=== PATIENT | male | born 1980 | race Caucasian/White ===

== ENCOUNTER 2025-01-25 15:50 | Emergency (ER) | payer MEDICAID ==
[~2025-01-25] VITALS: Ht 170.2 cm; Wt 100.6 kg
[~2025-01-25 15:50] MED LIST: CHLO25CA10 PO; NO HOME MEDS
[2025-01-25 15:55] VITALS: BP 137/83; PULSE 120; RESP 16; TEMP 99.2; O2SAT 95
== END 2025-01-25 20:12 | disposition left against medical advice (07) ==
LOC: ER 15:51
DX: R60.0 Localized edema (principal); Z88.5 Allergy status to narcotic agent; Z88.1 Allergy status to other antibiotic agents; Z53.21 Procedure and treatment not carried out due to patient leaving prior to being seen by health care provider

== ENCOUNTER 2025-01-27 18:00 | Emergency (ER) | payer MEDICAID ==
[~2025-01-27] VITALS: Ht 172.7 cm; Wt 88.9 kg
[2025-01-27] MEDS: normal saline 1000ML IV soln IVB ONE (18:30)
[2025-01-27 18:54] LABS: BASOPHILS # (AUTO) 0.1 X10'3 (0-0.2); BASOPHILS % (AUTO) 1.3 % (0-1); EOSINOPHILS # (AUTO) 0.1 X10'3 (0-0.9); EOSINOPHILS % (AUTO) 1.1 % (0-6); HEMATOCRIT 41.6 % (42.0-52.0); HEMOGLOBIN 14.3 g/dl (14.0-17.9); LYMPHOCYTES # (AUTO) 2.7 X10'3 (1.1-4.8); LYMPHOCYTES % (AUTO) 40.9 % (21-51); MEAN CORPUSCULAR HEMOGLOBIN 33.1 PG (27.0-31.0); MEAN CORPUSCULAR HGB CONC 34.3 g/dL (33.0-36.5); MEAN CORPUSCULAR VOLUME 96.4 FL (78-98); MEAN PLATELET VOLUME 7.2 FL (7.4-10.4); MONOCYTES # (AUTO) 0.5 X10'3 (0-0.9); MONOCYTES % (AUTO) 8.1 % (2-12); NEUTROPHILS # (AUTO) 3.2 X10'3 (1.8-7.7); NEUTROPHILS % (AUTO) 48.6 % (42-75); PLATELET COUNT 362 X10'3 (140-440); RED BLOOD COUNT 4.32 X10'6 (4.70-6.10); RED CELL DISTRIBUTION WIDTH 13.2 % (11.5-14.5); WHITE BLOOD COUNT 6.7 X10'3 (4.5-11.0)
[2025-01-27 19:04] LABS: APTT 32 SECONDS (22-32); INR 1.1 INR
[2025-01-27] MEDS: pantoprazole 40 MG vial IV STA (19:05)
[2025-01-27] MEDS: ondansetron/PF 4mg/2ml inj IV ONE (19:05)
[2025-01-27 19:09] LABS: ALBUMIN 4.8 G/DL (3.4-5.0); ANION GAP 14 (8-16); BLOOD UREA NITROGEN 7 MG/DL (7-18); BUN/CREATININE RATIO 10.8 (10.0-20.0); CALCIUM 8.8 MG/DL (8.5-10.1); CHLORIDE 101 MMOL/L (99-107); CREATININE 0.65 MG/DL (0.60-1.10); GLUCOSE 105 MG/DL (70-104); LIPASE 93 U/L (16-77); POTASSIUM 3.7 MMOL/L (3.5-5.1); PROTHROMBIN TIME 11.9 SECONDS (9.0-12.0); SODIUM 141 MMOL/L (135-145); TOTAL CARBON DIOXIDE 25.9 MMOL/L (24-32); eCRCL 142 ML/MIN; eGFR > 90 ML/MIN
[2025-01-27 19:10] LABS: ETHANOL 319 MG/DL (<10)
[2025-01-27] MEDS: LORazepam 2 mg/ml vial IV ONE (19:20)
[2025-01-27 19:22] LABS: BILIRUBIN,URINE NEGATIVE (Neg); CLARITY,URINE CLEAR (Clear); COLOR,URINE YELLOW (Yellow); GLUCOSE, URINE NEGATIVE (Neg); KETONES,URINE NEGATIVE (Neg); LEUKOCYTE ESTERASE ,URINE NEGATIVE (Neg); OCCULT BLOOD,URINE TRACE-INTACT (Neg); PROTEIN,URINE NEGATIVE (Neg); UROBILINOGEN,URINE 0.2 E.U/dL (0.2-1.0)
[2025-01-27 19:27] LABS: UA COLLECTION TYPE URINAL
[2025-01-27 19:28] LABS: NITRITES, URINE NEGATIVE (Neg)
[2025-01-27 19:34] LABS: BACTERIA,URINE FEW /HPF (Neg); RBC,URINE 0-2 /HPF (0-2); SQUAMOUS EPITHELIAL CELL,UR FEW /LPF (FEW); WBC,URINE 0-4 /HPF (0-4)
[2025-01-27 19:36] LABS: URINE AMPHETAMINE SCREEN NEGATIVE (Neg); URINE BARBITUATE SCREEN NEGATIVE (Neg); URINE BENZODIAZEPINES SCREEN NEGATIVE (Neg); URINE CANNABINOID SCREEN NEGATIVE (Neg); URINE COCAINE SCREEN NEGATIVE (Neg); URINE METHADONE SCREEN NEGATIVE (Neg); URINE OPIATE SCREEN NEGATIVE (Neg); URINE PHENCYCLIDINE SCREEN NEGATIVE (Neg)
[2025-01-27] MEDS ORDERED: haloperidol lactate 5mg/ml inj IM ONE (23:25)
[2025-01-27] MEDS: diphenhydrAMINE 50 mg/ml inj IV ONE (23:39)
[2025-01-27] MEDS: haloperidol lactate 5mg/ml inj IM ONE (23:45)
[2025-01-28] MEDS ORDERED: CHLO25CA10 PO (05:29)
[2025-01-28] MEDS: chlordiazePOXIDE 25mg capsule PO ONE (05:37)
[2025-01-28 05:53] VITALS: BP 115/71; PULSE 98; RESP 20; TEMP 98.1; O2SAT 97
== END 2025-01-28 06:01 | disposition home or self-care (01) ==
LOC: ER 18:00
DX: R07.9 Chest pain, unspecified (principal); J45.909 Unspecified asthma, uncomplicated; F10.129 Alcohol abuse with intoxication, unspecified; Z88.5 Allergy status to narcotic agent; Z88.1 Allergy status to other antibiotic agents; Y90.8 Blood alcohol level of 240 mg/100 ml or more
CPT/HCPCS: 36415; 71045; 80048; 80305; 80320; 81001; 83690; 84484; 85025; 85610; 85730; 96361; 96365; 96372; 96375; 99285; J1200; J1630; J2060; J2405; J2470; J7030

== ENCOUNTER 2025-05-02 09:44 | Inpatient (IN) | payer MEDICAID ==
[~2025-05-02] VITALS: Ht 172.7 cm; Wt 90.3 kg
--- NOTE | 2025-05-02 09:50 | ELECTROCARDIOGRAPH REPORT ---
[facility] Test Date: 2025-05-02 Test Time: 09:46:27 Pat Name: LEONARDO SHIN Department: EMERGENCY ROOM Room: Gender: M Diet Clerk: SHAHZAD : 1980 Requested By: BRANDIE STEINBERG Order Number: [id number] Reading MD: Measurements Intervals Bowers Rate: 111 P: 50 WA: 161 QRS: 18 QRSD: 105 T: 36 QT: 325 QTc: 442 Interpretive Statements Sinus tachycardia Please click the below link to view image of tracing.
--- NOTE | 2025-05-02 10:14 | RADIOLOGY REPORT ---
EXAM: DI CHEST,SINGLE VIEW HISTORY: CP COMPARISON: DI CHEST,SINGLE VIEW on DOS: 01/27/25 TECHNIQUE: PA upright view of the chest was performed. FINDINGS: No pneumothorax, consolidative infiltrates, or pulmonary edema. The heart is not enlarged. IMPRESSION: No acute intrathoracic process.
[2025-05-02] MEDS: nitroGLYCERIN 0.4mg SUBLingual tab SL PRN (10:16)
[2025-05-02] MEDS: aspirin 81mg tab.chew PO ONE (10:16)
[2025-05-02 10:21] LABS: BASOPHILS % (AUTO) 0.9 % (0-1); EOSINOPHILS # (AUTO) 0.1 X10'3 (0-0.9); HEMATOCRIT 44.8 % (42.0-52.0); HEMOGLOBIN 15.6 g/dl (14.0-17.9); LYMPHOCYTES # (AUTO) 1.9 X10'3 (1.1-4.8); LYMPHOCYTES % (AUTO) 44.5 % (21-51); MEAN CORPUSCULAR HEMOGLOBIN 32.5 PG (27.0-31.0); MEAN CORPUSCULAR HGB CONC 34.9 g/dL (33.0-36.5); MEAN CORPUSCULAR VOLUME 93.3 FL (78-98); MEAN PLATELET VOLUME 8.1 FL (7.4-10.4); MONOCYTES # (AUTO) 0.3 X10'3 (0-0.9); MONOCYTES % (AUTO) 8.1 % (2-12); NEUTROPHILS # (AUTO) 1.9 X10'3 (1.8-7.7); NEUTROPHILS % (AUTO) 44.5 % (42-75); PLATELET COUNT 174 X10'3 (140-440); RED BLOOD COUNT 4.81 X10'6 (4.70-6.10); RED CELL DISTRIBUTION WIDTH 14.3 % (11.5-14.5); WHITE BLOOD COUNT 4.2 X10'3 (4.5-11.0)
[2025-05-02 10:48] LABS: ALANINE AMINOTRANSFERASE 238 U/L (12-78); ALBUMIN 4.6 G/DL (3.4-5.0); ALBUMIN/GLOBULIN RATIO 1.2 (1.1-1.5); ALKALINE PHOSPHATASE 132 IU/L (46-116); ANION GAP 13 (8-16); ASPARTATE AMINO TRANSFERASE 345 U/L (10-37); BILIRUBIN,TOTAL 1.8 MG/DL (0.1-1.0); BLOOD UREA NITROGEN 5 MG/DL (7-18); BUN/CREATININE RATIO 6.7 (10.0-20.0); CALCIUM 9.7 MG/DL (8.5-10.1); CHLORIDE 99 MMOL/L (99-107); CREATININE 0.75 MG/DL (0.60-1.10); GLUCOSE 129 MG/DL (70-104); POTASSIUM 3.3 MMOL/L (3.5-5.1); PRO BRAIN NATRIURETIC PEPTIDE < 30 PG/ML (0-125); SODIUM 140 MMOL/L (135-145); TOTAL CARBON DIOXIDE 28.3 MMOL/L (24-32); TOTAL PROTEIN 8.5 G/DL (6.4-8.2); eCRCL 122 ML/MIN; eGFR > 90 ML/MIN
--- NOTE | 2025-05-02 10:53 | Physician Documentation ---
History of Present Illness ~ Chief Complaint: Chest Pain Stated Complaint: CP Time Seen by MD: 10:37 Primary Medical Doctor: Cassidy Serrano Mode of Arrival: POV HPI This is a 45-year-old male with history of anxiety who presents with one-week of intermittent chest pain he describes as across his entire chest occasionally radiating into left arm and neck, patient reports pain is worse when he lays down and he notices his heart racing, patient reports chest pain is accompanied by anxiety and shortness of breath. Patient reports pain is currently present though localized to left upper chest in described as nagging. Patient reports no associated vomiting or diaphoresis. Patient reports additional history of GERD though describes symptoms is different from GERD symptoms. Patient reports last stress test five years ago. Patient reports that his mother recently had a heart attack. Medication Reconciliation Allergies: Coded Allergies: azithromycin (Unverified Allergy, Intermediate, 04/03/15) clindamycin (Verified Allergy, Intermediate, RASH, 04/03/15) codeine (Unverified Allergy, Intermediate, 04/03/15) Scheduled Buprenorphine HCl/Naloxone HCl (Buprenorp-Nalox 4-1 mg Sl Film), 1 FILM SL BID, (Reported) Fluoxetine HCl (Fluoxetine HCl), 1 CAP PO DAILY, (Reported) Olanzapine (Olanzapine), 0.5 TAB PO BID, (Reported) Scheduled PRN Lorazepam (Ativan), 1 TAB PO BID PRN for for anxiety/agitation, (Reported) Propranolol Hcl (Propranolol Hcl), 1 TAB PO BID PRN for for anxiety/agitation, (Reported) Discontinued Medications Chlordiazepoxide Hcl (Librium), 25 MG PO UD PRN for for anxiety/agitation Discontinued Reason: completed med therapy Chlordiazepoxide Hcl (Librium), 25 MG PO TID Discontinued Reason: completed med therapy [No Home Meds], (Reported) Discontinued Reason: completed med therapy Past Medical History Past Medical History: High Cholesterol, Hypertension, Asthma, GERD, Pancreatitis, MRSA Abscess Past Surgical History: no surgical history Patient History: FH: [place] (myocardial infarction) Alcohol Use: Heavy Drug Use: none Lives with: Alone Lives In: Homeless Occupation: employed Review of Systems ROS Chest pain as stated above in the HPI, otherwise all systems are reviewed and negative. Physical Exam Vital Signs: Temperature: 97.5, Source: Oral, Heart Rate: 118, Respiratory Rate: 19, BP: 145/109, Pulse Oximetry: 98, Weight: 90.910 Oxygen Flow Rate: 0 Physical Exam VITALS: Reviewed and as above. GENERAL: Alert and oriented x4, nontoxic appearing, no apparent distress. RESPIRATORY: No increased work of breathing, no respiratory distress, speaking in full clear sentences, clear lung sounds in all mendiola CHEST: Nontender to palpation CV: Regular rate and rhythm no murmur BACK: No tenderness to palpation, no CVA tenderness GI: Soft, nontender, no rebound, no guarding, bowel sounds present SKIN: Warm and dry PSYCH: Mildly anxious appearing otherwise normal mood and affect Progress Progress Note 1208: Spoke with hospitalist resident Dr. Rey who kindly accepts patient for admission Results/Orders Results/Orders Orders - HELEN MONTEJO Hospitalist (05/02/25 11:28) Fill Out Med Reconciliation (05/02/25 11:28) Vital Signs 05/02/25 05/02/25 05/02/25 09:55 10:09 10:23 Temp 97.5 97.5 Pulse 114 118 Resp 18 18 19 B/P (MAP) 158/95 145/109 (121) Pulse Ox 96 98 O2 Flow Rate 0 0 Laboratory Tests Test 05/02/25 09:56 05/02/25 11:51 05/02/25 12:50 White Blood Count 4.2 L Red Blood Count 4.81 Hemoglobin 15.6 Hematocrit 44.8 Mean Corpuscular Volume 93.3 Mean Corpuscular Hemoglobin 32.5 H Mean Corpuscular Hemoglobin Concent 34.9 Red Cell Distribution Width 14.3 Platelet Count 174 Mean Platelet Volume 8.1 Neutrophils (%) (Auto) 44.5 Lymphocytes (%) (Auto) 44.5 Monocytes (%) (Auto) 8.1 Eosinophils (%) (Auto) 2.0 Basophils (%) (Auto) 0.9 Neutrophils # (Auto) 1.9 Lymphocytes # (Auto) 1.9 Monocytes # (Auto) 0.3 Eosinophils # (Auto) 0.1 Basophils # (Auto) 0.0 CBC Comment Sodium Level 140 Potassium Level 3.3 L Chloride Level 99 Carbon Dioxide Level 28.3 Anion Gap 13 Blood Urea Nitrogen 5 L Creatinine 0.75 Estimated GFR/1.73 m2 > 90 BUN/Creatinine Ratio 6.7 L Glucose Level 129 H Hemoglobin A1c 5.6 Calcium Level 9.7 Total Bilirubin 1.8 H Aspartate Amino Transf (AST/SGOT) 345 H Alanine Aminotransferase (ALT/SGPT) 238 H Alkaline Phosphatase 132 H Troponin I High Sensitivity 6 6 5 Pro-B-Type Natriuretic Peptide < 30 Total Protein 8.5 H Albumin 4.6 Globulin 3.9 Albumin/Globulin Ratio 1.2 Chemistry Comments Ethyl Alcohol Level < 10 Troponin I High Sens Percent Delta 0 16 Troponin I Hi Sens Absolute Change 0 -1 EKG/XRAY/CT/US/VASC/MRI EKG : Additional Comment EKG at 9:46 a.m. interpreted by myself as sinus tachycardia at a rate of 111 normal axis, no ST segment elevation or depression Chest X-Ray : Additional Comments EXAM: DI CHEST,SINGLE VIEW HISTORY: CP COMPARISON: DI CHEST,SINGLE VIEW on DOS: 01/27/25 TECHNIQUE: PA upright view of the chest was performed. FINDINGS: No pneumothorax, consolidative infiltrates, or pulmonary edema. The heart is not enlarged. IMPRESSION: No acute intrathoracic process. Electronically Signed by:CISCO ANNA MD Date & Time: 05/02/25 1011 Dictated by: CISCO ANNA MD Dictation date and time: 05/02/25 0970 I have reviewed and agree with the radiology report. I have reviewed and interpreted the imaging as: No focal consolidation or pneumothorax Heart Score: Heart Score Response (Comments) Value History Highly Suspicious 2 EKG Normal 0 Age <45 0 Risk Factors >3 or Hx ASHD 2 Troponin Normal limit 0 Total 4 Medical Decision Making Findings 45-year-old male presented with one-week of intermittent chest pain with with radiation to left neck and arm, patient reports palpitations and shortness of breath accompanying chest pain. While it is reassuring patient does not have evidence of ischemia, infarction, or arrhythmia on EKG and initial troponin was not elevated, based on patient's history of hypertension, hyperlipidemia, and family history of cardiac disease along with highly suspicious description of chest pain patient's heart score is four and would benefit from inpatient evaluation and management for further risk stratification. Hospitalist team contacted and kindly accepts patient for admission. Differential Dx:Considerations: Include: angina, aortic dissection, chest wall pain, cholelithiasis, CHF, costochondritis, esophageal reflux/spasm, myocardial infarction, pericarditis, pancreatitis, pneumonia Departure Disposition: ADMITTED INPATIENT Admitted to Inpatient Unit: to hospitalist Impression: Primary Impression: Chest pain Qualified Codes: R07.9 - Chest pain, unspecified Condition: Guarded Referrals: NO PRIMARY CARE PROVIDER (PCP) Education Educated: Patient Signature Scribe Signature: No scribe Attestation: The note accurately reflects work and decisions made by me.JULIA Sierra 05/02/25 20:53 HELEN MONTEJO May 02, 2025 10:53
[2025-05-02] MEDS ORDERED: cloNIDine 0.1 mg tablet PO PRN (13:10)
[2025-05-02] MEDS ORDERED: LORazepam 2 mg/ml vial IV PRN ×2 (13:10→22:20)
[2025-05-02] MEDS ORDERED: magnesium sulf-water 4G/100mL 100 ML IV PRN (13:10)
[2025-05-02] MEDS ORDERED: mag hydrox/Alum hydrox/simeth 30ml oral suspension PO PRN (13:10)
[2025-05-02] MEDS ORDERED: potassium Cl 20 mEq SR tablet PO PRN (13:10)
[2025-05-02] MEDS ORDERED: magnesium sulf-water 2g/50mL 50 ML IV PRN (13:10)
[2025-05-02] MEDS ORDERED: magnesium hydroxide 30ml (MOM) UD suspension PO PRN (13:10)
[2025-05-02] MEDS ORDERED: acetaminophen 325mg tablet PO PRN (13:10)
[2025-05-02] MEDS ORDERED: ondansetron/PF 4mg/2ml inj IV PRN (13:10)
--- NOTE | 2025-05-02 13:13 | HISTORY AND PHYSICAL-Residence ---
History & Physical Providers to CC Resident Creating Document: SHERWIN ALEGRIA, RES ~ History of Present Illness Primary Medical Doctor: Cassidy Serrano Reason for Admit\Complaint: Chest pain History of Present Illness 45-year-old male patient with past medical history of alcohol use disorder came to the hospital with chief complaint of chest pain. The patient states that he has been experiencing chest pain for the last two weeks, currently improved, 4/5 in intensity with radiation to his neck. The patient states that he has been sweating, and also states some shortness of breath when he experienced these symptoms. The patient states that he has been drinking at least four or more shots of heavy alcohol daily. Associated to that the patient also endorses shakiness during the mornings. The patient currently denies shortness of breath, intestinal or urinary symptoms. Allergies: Coded Allergies: azithromycin (Unverified Allergy, Intermediate, 04/03/15) clindamycin (Verified Allergy, Intermediate, RASH, 04/03/15) codeine (Unverified Allergy, Intermediate, 04/03/15) Home Medications Home Medications Active Librium (Chlordiazepoxide Hcl) 25 Mg Capsule 25 Mg PO UD PRN use 2 tablets by mouth 3 times a day for 2 days then 2 tablets twice a day for 2 days then 1 tablet 3 times a day for 2 days then one tablet twice a day for 2 days then 1 tablet a day for 2 days Reported [No Home Meds] Past Medical History Past Medical History Alcohol use disorder. Past Surgical History Surgical History Comment None Past Social History Smoking: Other (As per patient he vapes every day.) Alcohol Use: Heavy (He states to be drinking four shots of heavy alcohol every night.) Drug Use: Other (The patient states that he used recreational drugs in the past. Last one nine years ago.) Lives with: Alone Lives In: Homeless Occupation: employed ROS All Other Systems: Reviewed and Negative Exam Vitals: Vital Signs Date Time Temp Pulse Resp B/P (MAP) Pulse Ox O2 Delivery O2 Flow Rate FiO2 05/02/25 10:23 97.5 118 19 145/109 (121) 98 0 Physical exam: General: Well alert, well oriented, agitated, anxious and shaking is evidenced during the physical exam. HEENT: Conjunctive are pink, sclerae clear, no icterus, pupil is equal in both sides, reactive to light, no ear discharge, no pharyngeal erythema or an edema. Neck: Supple, no JVD, no lymphadenopathy and thyromegaly. Chest: Equal air entry on both lungs, no additional sounds no rhonchi no wheezing at the moment. Cardiovascular: Tachycardia, S1-S2 regular sinus rhythm and, regular rate, no gallops, no rubs, no murmurs Abdomen: No visible peristalsis, Bowel sounds present on auscultation, soft, nontender, no guarding, no rigidity Extremities: No obvious deformities, no pitting edema bilaterally, capillary refill intact, peripheral pulsations are intact on both sides, shaking is evidenced during the physical exam. Central Nervous System: No focal neurological deficits, no motor or sensory weakness in all 4 extremities, could move all 4 extremities, 2+ deep tendon reflexes, negative Babinski. Musculoskeletal: No joint swelling, deformities, inflammations, and no scoliosis and back tenderness Skin: Warm and dry. Diagnostic Data Last Recorded Lab Results: 05/02/25 0956 05/02/25 0956 Advance Care Planning Advanced Care plannin - 30 Minutes (I spent a total of 17 minutes on reviewing various resuscitative measures/ACP with the patient at the time of admission. The patient has decided on a full code status.) Additional Plan Assessment and plan: 45-year-old male patient came to the hospital with chief complaint of chest pain, anxiety, shakiness. Alcohol withdrawal: CIWA score: 25 points: The patient came to the hospital with chief complaint of chest pain, anxiety, shakiness. Patient states that he has been drink four shots of alcohol every night sometimes more. Severe alcohol withdrawal protocol in place. Follow-up urine toxicology. Folic acid and thiamine IV. NS at 100 mL/hour. support services manager consulted. Substance use navigator consulted. Chest pain: Well's score: 1.5: EKG: Sinus tachycardia, no ST elevation, normal NV and QRS interval. Troponin levels within reference range. Follow-up lipid panel. Follow-up echocardiogram. Follow-up D-dimer. Transaminitis: Elevated liver enzymes. Continue to monitor CMP. Follow-up abdominal ultrasound. Possible alcoholic cardiomyopathy: Follow-up echocardiogram. Code status: Full code DVT prophylaxis: SCDs Analgesia/sedation: Ativan, Haldol. Line/tube: PIV GI prophylaxis: Protonix Nutrition: Regular diet PT: Ordered Prognosis: Guarded Disposition: The patient will be admitted to PCU with telemetry. Sherwin Grullon Internal Medicine Resident [facility] Date of Service: May 02, 2025 Billing Provider: MARLENE MOROCHO MD,SHERWIN INGRAM, RES May 02, 2025 13:12
[2025-05-02] MEDS: normal saline 1000ml 1,000 ML IV SCH (13:27)
[2025-05-02] MEDS ORDERED: PROP20TA6 PO (13:29)
[2025-05-02] MEDS ORDERED: BUPR1FIL56 SL (13:29)
[2025-05-02] MEDS ORDERED: ATI1T PO (13:29)
[2025-05-02] MEDS ORDERED: OLAN20TA81 PO (13:29)
[2025-05-02] MEDS ORDERED: FLUO-167 PO (13:29)
[2025-05-02 13:31] LABS: HEMOGLOBIN A1C 5.6 % (4.5-6.2)
[2025-05-02 14:51] LABS: BILIRUBIN,URINE NEGATIVE (Neg); CLARITY,URINE CLEAR (Clear); GLUCOSE, URINE NEGATIVE (Neg); KETONES,URINE NEGATIVE (Neg); LEUKOCYTE ESTERASE ,URINE NEGATIVE (Neg); NITRITES, URINE NEGATIVE (Neg); OCCULT BLOOD,URINE NEGATIVE (Neg); PROTEIN,URINE NEGATIVE (Neg)
[2025-05-02 14:54] LABS: COLOR,URINE DARK YELLOW (Yellow); UA COLLECTION TYPE VOIDED
[2025-05-02] MEDS: LORazepam 2 mg/ml vial IV PRN (16:32)
[2025-05-02 17:44] LABS: ETHANOL < 10 MG/DL (<10)
[2025-05-02] MEDS: haloperidol lactate 5mg/ml inj IM PRN (18:15)
--- NOTE | 2025-05-02 18:38 | CARDIOLOGY REPORT ---
APPROVED REPORT EXAM: Comprehensive 2D, Doppler, and color-flow Echocardiogram. Patient Location: ER RM 2 Blood Pressure: 154/93 mmHg Heart Rate: 98 bpm Indications Chest Pain Asthma MRSA NO WATERPROOFING MIXER NO Previous ECHO 2D Dimensions LA Diam3.0 cm IVSd 1.0 (0.7-1.1cm) LVDd 4.3 cm PWd 1.0 (0.7-1.1cm) IVSs 1.4 (0.8-1.2cm) LVDs 2.6 (2.5-4.0cm) PWs 1.6 (0.8-1.2cm) LVOT Diameter 2.36 (1.8-2.4cm) LVEF(%) 71.2 (>50%) Ao Asc Diam.2.83 cm IVC 13.87 mmFS (%) 40.2 % SV 60.4 ml CO 10.5 L/min M-Mode Dimensions Left Atrium(MM) 3.37 (2.5-4.0cm) Aortic Root 3.15 (2.2-3.7cm) Aortic Cusp Exc 2.49 (1.5-2.0cm) MV EPSS 0.7 (<0.5cm) Aortic Valve AoV Peak Fer. 160.8 cm/s AoV VTI 22.7 cm AO Peak GR. 10.3 mmHg AO Mean GR. 6 mmHg LVOT VTI 21.95 cm LVOT Peak Fer. 124.2 cm/s SHAHBAZ(VTI)/BSA 4.21 cm2/m2 SHAHBAZ (VTI) 4.21 cm2 Mitral Valve MV E Velocity 48.1 cm/s MV Peak Gr. 1 mmHg MV DECEL TIME 252 ms MV A Velocity 82.6 cm/s MV PHT 68 ms E/A Ratio 0.6 MVA (PHT) 3.24 cm2 MV VMax61.0 cm/s TDI Lateral E' P. V11.19 cm/s E/Lateral E' 4.3 Tricuspid Valve TR P. Velocity 171 cm/s RAP ESTIMATE 10 mmHg TR Peak Gr. 12 mmHg RVSP 22 mmHg LEFT VENTRICLE Normal LV size and wall thickness. Overall systolic function is normal. LVEF is 70%. RIGHT VENTRICLE RV is normal size and function. ATRIA The left atrium size is normal. AORTIC VALVE Trileaflet AV appears mildly sclerotic without stenosis. No insufficiency. MITRAL VALVE Mitral valve leaflets are mildly thickened with mild annular calcification. No stenosis. Trace regurg itation. TRICUSPID VALVE The tricuspid valve is normal in structure with trace regurgitation. PULMONIC VALVE The pulmonary valve is normal in structure without insufficiency. GREAT VESSELS The aortic root is normal in size. The ascending aorta is normal in size. The IVC is normal in size a nd collapses >50% with inspiration. PERICARDIUM Normal pericardium. No effusion. Other Information Study Quality: Adequate Conclusion Normal LV size and wall thickness. Overall systolic function is normal. LVEF is 70%. RV is normal size and function. The left atrium size is normal. Trileaflet AV appears mildly sclerotic without stenosis. No insufficiency. Mitral valve leaflets are mildly thickened with mild annular calcification. No stenosis. Trace regu rgitation. The tricuspid valve is normal in structure with trace regurgitation. Normal pericardium. No effusion.
[2025-05-02] MEDS: K and/or MAG REPLACEMENT MC SCH (19:59)
[2025-05-02] MEDS: docusate sod 100mg capsule PO SCH (20:00)
[2025-05-02 20:13] LABS: D-DIMER 0.29 MG/L FEU (0-0.50)
[2025-05-02 20:29] LABS: URINE AMPHETAMINE SCREEN NEGATIVE (Neg); URINE BARBITUATE SCREEN NEGATIVE (Neg); URINE BENZODIAZEPINES SCREEN NEGATIVE (Neg); URINE CANNABINOID SCREEN NEGATIVE (Neg); URINE COCAINE SCREEN NEGATIVE (Neg); URINE METHADONE SCREEN NEGATIVE (Neg); URINE OPIATE SCREEN NEGATIVE (Neg); URINE PHENCYCLIDINE SCREEN NEGATIVE (Neg)
[2025-05-02] MEDS: thiamine 100mg/ml 2ml inj. IV SCH (20:55)
[2025-05-02] MEDS: phenoBARBITAL inj 260 MG in normal saline 100ml IV soln 98 ML IV ONE (21:35)
[2025-05-02] MEDS: normal saline 1000ML IV soln IVB ONE (21:36)
[2025-05-02] MEDS: folic acid 1mg/0.2ml inj IV SCH (21:36)
--- NOTE | 2025-05-02 21:43 | RADIOLOGY REPORT ---
Procedure: US [facility] Study Date and Requested Time: 05/02/2025 08:25 PM History: elevated liver enzymes, alcohol consumption Comparison: None Technique: Multiple high resolution schafer-scale images obtained of the right upper quadrant of the abd omen with color Doppler for evaluation of blood flow and vascularity as indicated. Findings: Liver measures 21 cm in length, with increased echogenicity and normal contours. No evidence of intr ahepatic or extrahepatic ductal dilatation. Common bile duct measures 0.5 cm in diameter. Gallbladder unremarkable with no evidence of abnormal wall thickening, gallstones, biliary sludge, or pericholecystic fluid. Negative sonographic Ramírez's sign. Pancreas is obscured by bowel gas Right kidney measures 11.2 cm in length, with normal contours, echotexture, and cortical thickness. N o evidence of hydronephrosis, calculi, cystic or solid renal lesions. Partially visualized inferior vena cava unremarkable. Impression: Hepatomegaly with increased hepatic echogenicity which may be from hepatic disease/hepatic steatosis. Pancreas is obscured by bowel gas.
[2025-05-02] MEDS: phenoBARBITAL sod 130mg/ml inj. IV PRN (22:51)
[2025-05-02] MEDS: phenoBARBITAL sod 130mg/ml inj. ONE (23:39)
[2025-05-03] VITALS (25 sets, daily range): BP systolic 93–164; BP diastolic 52–97; PULSE 70–91; RESP 8–16; O2SAT 89–97
--- NOTE | 2025-05-03 01:52 | CONSULTATION REPORT ---
History of Present Illness Providers to CC ~ Reason for Admit\\Admit Dx: Chest pain Refering MD: Cassidy Serrano History of Present Illness 45 year old male presented to [facility] secondary to anxiety and non cardiac chest pain. Patient admits to drinking more than four shots of alcohol a day with what appears to be withdrawal symptoms in the morning. Patients HStrop I have been negative x 3. Patient unfortunately began to progress into fulminant alcohol withdrawal for which was underdosed. Called by ER nursing due to severe agitation and rapidly escalating CIWA. Allergies: Coded Allergies: azithromycin (Unverified Allergy, Intermediate, 04/03/15) clindamycin (Verified Allergy, Intermediate, RASH, 04/03/15) codeine (Unverified Allergy, Intermediate, 04/03/15) Home Medications Home Medications Active Reported Ativan (Lorazepam) 1 Mg Tablet 1 Tab PO BID PRN Propranolol Hcl 20 Mg Tablet 1 Tab PO BID PRN Fluoxetine HCl 20 Mg Capsule 1 Cap PO DAILY Olanzapine 20 Mg Tablet 0.5 Tab PO BID pt stated he takes "10mg twice a day" Buprenorp-Nalox 4-1 mg Sl Film (Buprenorphine HCl/Naloxone HCl) 4 Mg-1 Mg Film 1 Film SL BID Pt stated he does not take 6 times a day "only take twice a day" Past Family History Family History: FH: [place] (myocardial infarction) Physical Exam Last Vital Signs Recorded: Temperature: 97.9, Source: Temporal, Heart Rate: 95, Respiratory Rate: 15, BP: 152/98, Pulse Oximetry: 98, Weight: 90.910 Results Diagram Lab Result Diagram: 05/02/25 0956 05/02/25 0956 Assessment/Plan Additional Plan 1: ETOH WD 2: Non cardiac chest pain 3: Anxiety, suspect Bipolar disorder - Phenobarb, given 260mg, cont 130mg until improvement up to 1.8gm total (12 does of 130mg (20mg/kg)). NO FURTHER ATIVAN. - Thiamine 500mg TID x 5 days - Folate, B12 - Can use precedex but only while kalyan A agonist is also on board - Remove restraints when possible - No indication for intubation at the time of evaluation in the ED - restart fluoxatine, olanzapine - Upgrade to ICU. - Booker for DVT proph Patient seen through remote audiovisual assessment through HIPAA compliant setup. All labs, flowsheets, and images reviewed. Cumulative nonprocedural critical care time spent in directed patient care = 60min CORNELL TORRES Jr. DO May 03, 2025 01:52
[2025-05-03] MEDS: phenoBARBITAL sod 130mg/ml inj. ONE (02:37)
--- NOTE | 2025-05-03 06:19 | PROGRESS NOTE ---
Progress Note Dictate Providers to CC ~ Progress Note: No new acute issues overnight. Central Line/PICC still needed: N\A [place] Indications Met/Not Met: F/C Indications Met Antibiotic Ordered?: No Subjective Subjective Drowsy Objective Vitals Vital Signs Date Time Temp Pulse Resp B/P (MAP) Pulse Ox O2 Delivery O2 Flow Rate FiO2 05/03/25 05:54 79 16 121/83 (96) 93 Room Air 05/03/25 00:00 99.0 05/02/25 21:45 0 Lab Results: 05/02/25 0956 05/02/25 0956 Objective Heart: S1-2 reg Lungs: Clear Abdomen: Soft, non-tender, BS (+) Ext: No edema Coagulation Studies Laboratory Tests Test 05/02/25 19:48 D-Dimer 0.29 MG/L FEU (0-0.50) D-Dimer Comment Other Results 1-DT -Add Librium -Supportive Tx LYLY Taylor MD May 03, 2025 06:19
[2025-05-03] MEDS: dexmedetomidin/NS 400mcg/100ml 100 ML IV SCH (06:40)
[2025-05-03 06:43] LABS: EOSINOPHILS # (AUTO) 0.1 X10'3 (0-0.9); EOSINOPHILS % (AUTO) 2.7 % (0-6); HEMOGLOBIN 14.1 g/dl (14.0-17.9); LYMPHOCYTES # (AUTO) 1.7 X10'3 (1.1-4.8); MEAN CORPUSCULAR HEMOGLOBIN 32.5 PG (27.0-31.0); MEAN CORPUSCULAR HGB CONC 34.3 g/dL (33.0-36.5); MEAN PLATELET VOLUME 8.8 FL (7.4-10.4); MONOCYTES # (AUTO) 0.4 X10'3 (0-0.9); MONOCYTES % (AUTO) 9.2 % (2-12); NEUTROPHILS # (AUTO) 1.9 X10'3 (1.8-7.7); NEUTROPHILS % (AUTO) 46.1 % (42-75); PLATELET COUNT 147 X10'3 (140-440); RED BLOOD COUNT 4.32 X10'6 (4.70-6.10); RED CELL DISTRIBUTION WIDTH 14.5 % (11.5-14.5); WHITE BLOOD COUNT 4.1 X10'3 (4.5-11.0)
[2025-05-03 06:44] LABS: INR 1.2 INR
[2025-05-03 07:02] LABS: PROTHROMBIN TIME 12.5 SECONDS (9.0-12.0)
[2025-05-03 07:22] LABS: ALANINE AMINOTRANSFERASE 197 U/L (12-78); ALBUMIN 3.9 G/DL (3.4-5.0); ALBUMIN/GLOBULIN RATIO 1.1 (1.1-1.5); ALKALINE PHOSPHATASE 102 IU/L (46-116); AMYLASE 76 U/L (25-115); ANION GAP 12 (8-16); ASPARTATE AMINO TRANSFERASE 248 U/L (10-37); BILIRUBIN,TOTAL 1.7 MG/DL (0.1-1.0); BLOOD UREA NITROGEN 8 MG/DL (7-18); BUN/CREATININE RATIO 11.8 (10.0-20.0); CALCIUM 8.6 MG/DL (8.5-10.1); CHLORIDE 105 MMOL/L (99-107); CHOL/HDL RATIO 7.5 (0.00-4.99); CHOLESTEROL 298 MG/DL (0-200); CREATININE 0.68 MG/DL (0.60-1.10); GLUCOSE 83 MG/DL (70-104); HDL CHOLESTEROL 40 MG/DL (35-60); LDL CHOLESTEROL 191 MG/DL (50-100); LIPASE 127 U/L (16-77); MAGNESIUM 1.8 MG/DL (1.5-2.4); PHOSPHORUS 4.4 MG/DL (2.3-4.5); POTASSIUM 3.2 MMOL/L (3.5-5.1); SODIUM 143 MMOL/L (135-145); TOTAL CARBON DIOXIDE 26.5 MMOL/L (24-32); TOTAL PROTEIN 7.3 G/DL (6.4-8.2); TRIGLYCERIDES 266 MG/DL (20-135); eCRCL 134 ML/MIN; eGFR > 90 ML/MIN
[2025-05-03] MEDS: chlordiazePOXIDE 25mg capsule PO SCH (08:00)
[2025-05-03] MEDS: multivitamins, therapeutics tablet PO SCH (08:00)
[2025-05-03] MEDS: pantoprazole 40 MG vial IV SCH (09:09)
[2025-05-03] MEDS: potassium Cl 40MEQ/1/2NS 520ml 520 ML IV PRN (09:41)
[2025-05-03] MEDS ORDERED: cloNIDine 0.1 mg tablet NG PRN (11:56)
[2025-05-03] MEDS ORDERED: MULTIVIT-MIN/FERROUS GLUCONATE 9 MG/15 ML LIQUID NG SCH (11:58)
[2025-05-03] MEDS: chlordiazePOXIDE 25mg capsule NG SCH (13:00)
--- NOTE | 2025-05-03 17:32 | PROGRESS NOTE- Residence ---
Progress Note - Resident Providers to CC Resident Creating Document: SHERWIN ALEGRIA, RES ~ Antibiotic Timeout Antibiotic Ordered?: No Subjective The patient has been evaluated at bedside, the patient is currently under sedation with Precedex. Objective Vital Signs Date Time Temp Pulse Resp B/P (MAP) Pulse Ox O2 Delivery O2 Flow Rate FiO2 05/03/25 17:00 78 12 126/75 (92) 94 Room Air 05/03/25 15:00 97.7 05/03/25 07:00 2.0 Physical exam: General: Currently under sedation with Precedex. HEENT: Conjunctive are pink, sclerae clear, no icterus, pupil is equal in both sides, reactive to light, no ear discharge, no pharyngeal erythema or an edema. Neck: Supple, no JVD, no lymphadenopathy and thyromegaly. Chest: Equal air entry on both lungs, no additional sounds no rhonchi no wheezing at the moment. Cardiovascular: Tachycardia, S1-S2 regular sinus rhythm and, regular rate, no gallops, no rubs, no murmurs Abdomen: No visible peristalsis, Bowel sounds present on auscultation, soft, nontender, no guarding, no rigidity Extremities: No obvious deformities, no pitting edema bilaterally, capillary refill intact, peripheral pulsations are intact on both sides, shaking is evidenced during the physical exam. Central Nervous System: Currently under sedation with Precedex. Musculoskeletal: No joint swelling, deformities, inflammations, and no scoliosis and back tenderness Skin: Warm and dry. Result Diagram: 05/03/25 0505 05/03/25 0505 Coagulation Studies Laboratory Tests Test 05/02/25 19:48 05/03/25 05:05 D-Dimer 0.29 MG/L FEU (0-0.50) D-Dimer Comment Prothrombin Time 12.5 SECONDS (9.0-12.0) H INR International Normalized Ratio 1.2 INR Coagulation Comments Assessment Assessment 45-year-old male patient came to the hospital with chief complaint of chest pain, anxiety, shakiness. Plan Plan Severe Alcohol withdrawal: CIWA score: 48 points at admission: The patient came to the hospital with chief complaint of chest pain, anxiety, shakiness. Patient states that he has been drink four shots of alcohol every night sometimes more. The patient is currently in ICU, on Precedex and dexmedetomidine. On phenobarbital PRN. Urine toxicology negative. Folic acid and thiamine IV. NS at 100 mL/hour. financial services technician consulted. Substance use navigator consulted. 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 Chest pain: Pulmonary embolism-ruled out: EKG: Sinus tachycardia, no ST elevation, normal MT and QRS interval. Troponin levels within reference range. D-dimer 0.29. Echocardiogram: Normal LV size and wall thickness. Overall systolic function is normal. LVEF is 70%. RV is normal size and function. The left atrium size is normal. Trileaflet AV appears mildly sclerotic without stenosis. No insufficiency. Mitral valve leaflets are mildly thickened with mild annular calcification. No stenosis. Trace regurgitation. The tricuspid valve is normal in structure with trace regurgitation. Normal pericardium. No effusion. Transaminitis-trending down: Hepatic steatosis: Elevated liver enzymes. Continue to monitor CMP. Abdominal ultrasound: Hepatomegaly with increased hepatic echogenicity which may be from hepatic disease/hepatic steatosis. Pancreas is obscured by bowel gas. Possible alcoholic cardiomyopathy-ruled out: Echocardiogram: Normal LV size and wall thickness. Overall systolic function is normal. LVEF is 70%. RV is normal size and function. The left atrium size is normal. Trileaflet AV appears mildly sclerotic without stenosis. No insufficiency. Mitral valve leaflets are mildly thickened with mild annular calcification. No stenosis. Trace regurgitation. The tricuspid valve is normal in structure with trace regurgitation. Normal pericardium. No effusion. Code status: Full code DVT prophylaxis: SCDs Analgesia/sedation: Phenobarbital, Precedex, chlordiazepoxide, dexmedetomidine. Line/tube: PIV, NG tube. GI prophylaxis: Protonix 40 mg IV daily. Nutrition: Tube feeding. PT: Ordered Prognosis: Guarded Disposition: Continue management as per fiberglass boat builder. hSerwin Grullon Internal Medicine Resident [facility] Date of Service: May 03, 2025 Billing Provider: ROSALIE MOSELEY MD Common Visit Codes: 61580-[id number] INP/OBS CARE(MOD) SHERWIN ALEGRIA, RES May 03, 2025 17:32 ROSALIE MOSELEY MD May 03, 2025 18:39
[2025-05-03] MEDS: docusate sodium 100mg/10ml UD cup NG SCH (19:49)
[2025-05-04] VITALS (21 sets, daily range): BP systolic 118–171; BP diastolic 65–125; PULSE 74–119; RESP 11–25; TEMP 99.2–100.1; O2SAT 93–98
[2025-05-04] MEDS: OLANZapine 2.5MG tablet PO SCH (01:30)
[2025-05-04 05:22] LABS: ALANINE AMINOTRANSFERASE 179 U/L (12-78); ALBUMIN 3.8 G/DL (3.4-5.0); ALBUMIN/GLOBULIN RATIO 1.2 (1.1-1.5); ALKALINE PHOSPHATASE 97 IU/L (46-116); ANION GAP 12 (8-16); ASPARTATE AMINO TRANSFERASE 193 U/L (10-37); BILIRUBIN,TOTAL 1.4 MG/DL (0.1-1.0); BLOOD UREA NITROGEN 6 MG/DL (7-18); BUN/CREATININE RATIO 9.2 (10.0-20.0); CALCIUM 8.4 MG/DL (8.5-10.1); CHLORIDE 102 MMOL/L (99-107); CREATININE 0.65 MG/DL (0.60-1.10); GLUCOSE 78 MG/DL (70-104); MAGNESIUM 1.6 MG/DL (1.5-2.4); POTASSIUM 3.3 MMOL/L (3.5-5.1); SODIUM 142 MMOL/L (135-145); TOTAL CARBON DIOXIDE 27.6 MMOL/L (24-32); TOTAL PROTEIN 7.1 G/DL (6.4-8.2); eCRCL 140 ML/MIN; eGFR > 90 ML/MIN
[2025-05-04 05:26] LABS: BASOPHILS % (AUTO) 0.6 % (0-1); EOSINOPHILS # (AUTO) 0.1 X10'3 (0-0.9); EOSINOPHILS % (AUTO) 2.5 % (0-6); HEMOGLOBIN 13.7 g/dl (14.0-17.9); LYMPHOCYTES # (AUTO) 1.1 X10'3 (1.1-4.8); LYMPHOCYTES % (AUTO) 22.6 % (21-51); MEAN CORPUSCULAR HEMOGLOBIN 32.7 PG (27.0-31.0); MEAN CORPUSCULAR HGB CONC 34.3 g/dL (33.0-36.5); MEAN CORPUSCULAR VOLUME 95.3 FL (78-98); MEAN PLATELET VOLUME 9.2 FL (7.4-10.4); MONOCYTES # (AUTO) 0.1 X10'3 (0-0.9); MONOCYTES % (AUTO) 1.9 % (2-12); NEUTROPHILS # (AUTO) 3.5 X10'3 (1.8-7.7); NEUTROPHILS % (AUTO) 72.4 % (42-75); PLATELET COUNT 129 X10'3 (140-440); RED BLOOD COUNT 4.19 X10'6 (4.70-6.10); RED CELL DISTRIBUTION WIDTH 14.2 % (11.5-14.5); WHITE BLOOD COUNT 4.8 X10'3 (4.5-11.0)
[2025-05-04 05:54] LABS: INR 1.2 INR; PROTHROMBIN TIME 11.9 SECONDS (9.0-12.0)
[2025-05-04 06:04] LABS: AMYLASE 91 U/L (25-115); LIPASE 169 U/L (16-77); PHOSPHORUS 2.9 MG/DL (2.3-4.5)
--- NOTE | 2025-05-04 06:21 | PROGRESS NOTE ---
Progress Note Dictate Providers to CC ~ Progress Note: Off Precedex. Tolerating PO Central Line/PICC still needed: N\A [place] Indications Met/Not Met: F/C Indications Not Met Antibiotic Ordered?: No Subjective Subjective Comfortable Objective Vitals Vital Signs Date Time Temp Pulse Resp B/P (MAP) Pulse Ox O2 Delivery O2 Flow Rate FiO2 05/04/25 03:00 94 25 167/90 (115) 93 Room Air 05/03/25 19:00 98.1 05/03/25 07:00 2.0 Lab Results: 05/04/25 0315 05/04/25 031 Objective Heart: S1-2 reg Lungs: Clear Abdomen: Soft, non-tender, BS (+) Ext: No edema Neuro: awake Coagulation Studies Laboratory Tests Test 05/02/25 19:48 05/04/25 03:15 D-Dimer 0.29 MG/L FEU (0-0.50) D-Dimer Comment Prothrombin Time 11.9 SECONDS (9.0-12.0) INR International Normalized Ratio 1.2 INR Coagulation Comments Problem\Assessment\Plan Additional Plan 1-DT -Continue Librium -F/U BMP, Mg, PO4 -Supportive Tx 2-Elevated LFT Anticipate transfer soon A Rayn Sepsis Screening Reassessment Date: May 04, 2025 LYLY CHEEMA MD May 04, 2025 06:21
[2025-05-04] MEDS: famotidine 20mg tablet PO SCH (08:16)
[2025-05-04] MEDS: MULTIVIT-MIN/FERROUS GLUCONATE 9 MG/15 ML LIQUID NG SCH (08:16)
[2025-05-04] MEDS: potassium Cl 20 mEq SR tablet PO PRN (08:17)
[2025-05-04] MEDS: labetalol 100mg tablet PO ONE (10:05)
[2025-05-04] MEDS ORDERED: haloperidol lactate 5mg/ml inj IM PRN (17:05)
[2025-05-04] MEDS ORDERED: haloperidol 5mg tablet PO PRN (17:05)
[2025-05-04] MEDS ORDERED: diazepam inj 5 MG/ML inj. IV PRN (17:05)
--- NOTE | 2025-05-04 17:12 | PROGRESS NOTE ---
Daily Progress Note Providers to CC ~ Antibiotic Timeout Antibiotic Ordered?: No Subjective Patient was seen in CICU today looks lethargic but cooperated during physical examination. He was not agitated or anxious when I evaluated him. Objective Vital Signs Date Time Temp Pulse Resp B/P (MAP) Pulse Ox O2 Delivery O2 Flow Rate FiO2 05/04/25 15:30 100.1 96 16 118/71 (87) 95 Room Air 05/04/25 14:21 2.0 Result Diagram: 05/04/2531405/04/25314 General-patient not in any acute distress, ill-appearing, mildly lethargic HEENT-atraumatic normocephalic, neck supple without elevated JVD, no thyromegaly or carotid bruit. No lymphadenopathy bilaterally. Eyes-no icterus or pallor seen in eyes Chest-clear to auscultation bilaterally, breathing nonlabored no tachypnea, no wheezing, no crepitation, no crackles. Heart-S1-S2 normal, regular heart rate no murmur Abdomen bowel sounds positive on auscultation, soft nondistended nontender no guarding, no rigidity Neurology-lethargic but cooperated during physical examination able to communicate his needs Extremity- no pedal edema able to move all 4 extremities Coagulation Studies Laboratory Tests Test 05/02/25 19:48 05/04/25 03:15 D-Dimer 0.29 MG/L FEU (0-0.50) D-Dimer Comment Prothrombin Time 11.9 SECONDS (9.0-12.0) INR International Normalized Ratio 1.2 INR Coagulation Comments Problem\Assessment\Plan Severe Alcohol withdrawal: CIWA score: 48 points at admission: The patient came to the hospital with chief complaint of chest pain, anxiety, shakiness. Patient states that he has been drink four shots of alcohol every night sometimes more. Urine toxicology negative. Folic acid and thiamine IV. NS at 125 mL/hour. health services coordinator consulted. Substance use navigator consulted. Patient is transferred to PCU today from CICU Chest pain: Pulmonary embolism-ruled out: EKG: Sinus tachycardia, no ST elevation, normal [place] and QRS interval. Troponin levels within reference range. D-dimer 0.29. Echocardiogram: Normal LV size and wall thickness. Overall systolic function is normal. LVEF is 70%. RV is normal size and function. The left atrium size is normal. Trileaflet AV appears mildly sclerotic without stenosis. No insufficiency. Mitral valve leaflets are mildly thickened with mild annular calcification. No stenosis. Trace regurgitation. The tricuspid valve is normal in structure with trace regurgitation. Normal pericardium. No effusion. Transaminitis-trending down: Hepatic steatosis: Elevated liver enzymes. Continue to monitor CMP. Abdominal ultrasound: Hepatomegaly with increased hepatic echogenicity which may be from hepatic disease/hepatic steatosis. Pancreas is obscured by bowel gas. Possible alcoholic cardiomyopathy-ruled out: Echocardiogram: Normal LV size and wall thickness. Overall systolic function is normal. LVEF is 70%. RV is normal size and function. The left atrium size is normal. Trileaflet AV appears mildly sclerotic without stenosis. No insufficiency. Mitral valve leaflets are mildly thickened with mild annular calcification. No stenosis. Trace regurgitation. The tricuspid valve is normal in structure with trace regurgitation. Normal pericardium. No effusion. Hypokalemia we will do the replacement of potassium as per protocol Thrombocytopenia likely secondary to alcoholism Code status: Full code DVT prophylaxis: SCDs Analgesia/sedation: Phenobarbital, Precedex, chlordiazepoxide, dexmedetomidine. Line/tube: PIV, NG tube. GI prophylaxis: Protonix 40 mg IV daily. Nutrition: Tube feeding. PT: Ordered Patient's current condition is guarded we will continue to follow patient in PCU. Further management depending on response to treatment. Date of Service: May 04, 2025 Billing Provider: ROSALIE MOSELEY MD Common Visit Codes: [id number] INP/OBS CARE(HIGH) ROSALIE MOSELEY MD May 04, 2025 17:12
[2025-05-04] MEDS: labetalol 100mg tablet PO SCH (21:19)
[2025-05-04] MEDS: magnesium Cl slow-release 64mg tablet PO PRN (21:19)
[2025-05-04] MEDS: LORazepam 1 MG tablet PO PRN (22:34)
[2025-05-05 06:00] VITALS: BP 164/94; PULSE 88; RESP 17; TEMP 97.4; O2SAT 97
[2025-05-05 06:23] LABS: BASOPHILS % (AUTO) 1.2 % (0-1); EOSINOPHILS % (AUTO) 1.1 % (0-6); HEMATOCRIT 40.1 % (42.0-52.0); LYMPHOCYTES # (AUTO) 0.9 X10'3 (1.1-4.8); LYMPHOCYTES % (AUTO) 30.6 % (21-51); MEAN CORPUSCULAR HEMOGLOBIN 33.2 PG (27.0-31.0); MEAN CORPUSCULAR HGB CONC 34.8 g/dL (33.0-36.5); MEAN CORPUSCULAR VOLUME 95.4 FL (78-98); MEAN PLATELET VOLUME 9.5 FL (7.4-10.4); MONOCYTES # (AUTO) 0.4 X10'3 (0-0.9); MONOCYTES % (AUTO) 13.3 % (2-12); NEUTROPHILS # (AUTO) 1.7 X10'3 (1.8-7.7); NEUTROPHILS % (AUTO) 53.8 % (42-75); PLATELET COUNT 126 X10'3 (140-440); RED CELL DISTRIBUTION WIDTH 14.4 % (11.5-14.5); WHITE BLOOD COUNT 3.1 X10'3 (4.5-11.0)
[2025-05-05 06:30] LABS: INR 1.2 INR; PROTHROMBIN TIME 12.1 SECONDS (9.0-12.0)
[2025-05-05 06:47] LABS: ALANINE AMINOTRANSFERASE 158 U/L (12-78); ALBUMIN 3.7 G/DL (3.4-5.0); ALKALINE PHOSPHATASE 89 IU/L (46-116); AMYLASE 85 U/L (25-115); ANION GAP 8 (8-16); ASPARTATE AMINO TRANSFERASE 140 U/L (10-37); BILIRUBIN,TOTAL 0.9 MG/DL (0.1-1.0); BLOOD UREA NITROGEN 6 MG/DL (7-18); CALCIUM 8.8 MG/DL (8.5-10.1); CHLORIDE 104 MMOL/L (99-107); CREATININE 0.75 MG/DL (0.60-1.10); GLUCOSE 89 MG/DL (70-104); LIPASE 167 U/L (16-77); MAGNESIUM 1.5 MG/DL (1.5-2.4); PHOSPHORUS 3.9 MG/DL (2.3-4.5); POTASSIUM 3.8 MMOL/L (3.5-5.1); SODIUM 140 MMOL/L (135-145); TOTAL CARBON DIOXIDE 27.7 MMOL/L (24-32); TOTAL PROTEIN 7.4 G/DL (6.4-8.2); eCRCL 122 ML/MIN; eGFR > 90 ML/MIN
[2025-05-05 08:00] VITALS: RESP 20; O2SAT 94
[2025-05-05 11:00] VITALS: BP 125/75; PULSE 88; RESP 18; TEMP 98.1; O2SAT 94
--- NOTE | 2025-05-05 17:02 | PROGRESS NOTE ---
Daily Progress Note Providers to CC ~ Antibiotic Timeout Antibiotic Ordered?: No Subjective Patient is seen in his room looks comfortable denied any concerns no signs of alcohol withdrawal. He is able to walk by himself. Objective Vital Signs Date Time Temp Pulse Resp B/P (MAP) Pulse Ox O2 Delivery O2 Flow Rate FiO2 05/05/25 11:00 98.1 88 18 125/75 (92) 94 Room Air 05/04/25 14:21 2.0 Result Diagram: 05/05/2515 05/05/25 0515 General-patient not in any acute distress, ill-appearing, mildly lethargic HEENT-atraumatic normocephalic, neck supple without elevated JVD, no thyromegaly or carotid bruit. No lymphadenopathy bilaterally. Eyes-no icterus or pallor seen in eyes Chest-clear to auscultation bilaterally, breathing nonlabored no tachypnea, no wheezing, no crepitation, no crackles. Heart-S1-S2 normal, regular heart rate no murmur Abdomen bowel sounds positive on auscultation, soft nondistended nontender no guarding, no rigidity Neurology-lethargic but cooperated during physical examination able to communicate his needs Extremity- no pedal edema able to move all 4 extremities Coagulation Studies Laboratory Tests Test 05/02/25 19:48 05/05/25 05:15 D-Dimer 0.29 MG/L FEU (0-0.50) D-Dimer Comment Prothrombin Time 12.1 SECONDS (9.0-12.0) H INR International Normalized Ratio 1.2 INR Coagulation Comments Problem\Assessment\Plan Severe Alcohol withdrawal: CIWA score: 48 points at admission: The patient came to the hospital with chief complaint of chest pain, anxiety, shakiness. Patient states that he has been drink four shots of alcohol every night sometimes more. Urine toxicology negative. Folic acid and thiamine IV. NS at 125 mL/hour. creative services director consulted. Substance use navigator consulted. Patient is transferred to PCU today from CICU Chest pain: Pulmonary embolism-ruled out: EKG: Sinus tachycardia, no ST elevation, normal [place] and QRS interval. Troponin levels within reference range. D-dimer 0.29. Echocardiogram: Normal LV size and wall thickness. Overall systolic function is normal. LVEF is 70%. RV is normal size and function. The left atrium size is normal. Trileaflet AV appears mildly sclerotic without stenosis. No insufficiency. Mitral valve leaflets are mildly thickened with mild annular calcification. No stenosis. Trace regurgitation. The tricuspid valve is normal in structure with trace regurgitation. Normal pericardium. No effusion. Transaminitis-trending down: Hepatic steatosis: Elevated liver enzymes. Continue to monitor CMP. Abdominal ultrasound: Hepatomegaly with increased hepatic echogenicity which may be from hepatic disease/hepatic steatosis. Pancreas is obscured by bowel gas. Possible alcoholic cardiomyopathy-ruled out: Echocardiogram: Normal LV size and wall thickness. Overall systolic function is normal. LVEF is 70%. RV is normal size and function. The left atrium size is normal. Trileaflet AV appears mildly sclerotic without stenosis. No insufficiency. Mitral valve leaflets are mildly thickened with mild annular calcification. No stenosis. Trace regurgitation. The tricuspid valve is normal in structure with trace regurgitation. Normal pericardium. No effusion. Hypokalemia we will do the replacement of potassium as per protocol Thrombocytopenia likely secondary to alcoholism Code status: Full code DVT prophylaxis: SCDs Analgesia/sedation: Phenobarbital, Precedex, chlordiazepoxide, dexmedetomidine. Line/tube: PIV, NG tube. GI prophylaxis: Protonix 40 mg IV daily. Nutrition: Tube feeding. PT: Ordered Patient's current condition is guarded we will continue to follow patient in PCU. Further management depending on response to treatment. Date of Service: May 05, 2025 Billing Provider: ROSALIE MOSELEY MD Common Visit Codes: [id number] INP/OBS CARE(HIGH) ROSALIE MOSELEY MD May 05, 2025 17:02
[2025-05-05 18:00] VITALS: BP 125/88; PULSE 71; RESP 14; TEMP 98.2; O2SAT 96
[2025-05-05 22:00] VITALS: BP 121/74; PULSE 89; RESP 18; TEMP 98.1; O2SAT 97
[2025-05-06 06:00] VITALS: BP 160/92; PULSE 67; RESP 16; TEMP 98.4; O2SAT 96
[2025-05-06 06:06] LABS: BASOPHILS % (AUTO) 0.9 % (0-1); EOSINOPHILS # (AUTO) 0.1 X10'3 (0-0.9); EOSINOPHILS % (AUTO) 2.2 % (0-6); HEMOGLOBIN 14.2 g/dl (14.0-17.9); LYMPHOCYTES # (AUTO) 1.5 X10'3 (1.1-4.8); LYMPHOCYTES % (AUTO) 34.3 % (21-51); MEAN CORPUSCULAR HGB CONC 34.6 g/dL (33.0-36.5); MEAN CORPUSCULAR VOLUME 95.3 FL (78-98); MEAN PLATELET VOLUME 9.1 FL (7.4-10.4); MONOCYTES # (AUTO) 0.8 X10'3 (0-0.9); MONOCYTES % (AUTO) 17.7 % (2-12); NEUTROPHILS % (AUTO) 44.9 % (42-75); PLATELET COUNT 163 X10'3 (140-440); RED CELL DISTRIBUTION WIDTH 14.5 % (11.5-14.5); WHITE BLOOD COUNT 4.4 X10'3 (4.5-11.0)
[2025-05-06 06:15] LABS: INR 1.2 INR; PROTHROMBIN TIME 11.8 SECONDS (9.0-12.0)
[2025-05-06 06:52] LABS: ALANINE AMINOTRANSFERASE 133 U/L (12-78); ALBUMIN 3.9 G/DL (3.4-5.0); ALBUMIN/GLOBULIN RATIO 0.9 (1.1-1.5); ALKALINE PHOSPHATASE 105 IU/L (46-116); AMYLASE 135 U/L (25-115); ANION GAP 11 (8-16); ASPARTATE AMINO TRANSFERASE 87 U/L (10-37); BILIRUBIN,TOTAL 0.5 MG/DL (0.1-1.0); BLOOD UREA NITROGEN 5 MG/DL (7-18); BUN/CREATININE RATIO 6.7 (10.0-20.0); CALCIUM 8.9 MG/DL (8.5-10.1); CHLORIDE 105 MMOL/L (99-107); CREATININE 0.75 MG/DL (0.60-1.10); GLUCOSE 98 MG/DL (70-104); LIPASE 304 U/L (16-77); MAGNESIUM 1.6 MG/DL (1.5-2.4); PHOSPHORUS 3.9 MG/DL (2.3-4.5); POTASSIUM 3.5 MMOL/L (3.5-5.1); PREALBUMIN 31.3 MG/DL (19-36); SODIUM 141 MMOL/L (135-145); TOTAL CARBON DIOXIDE 25.4 MMOL/L (24-32); TOTAL PROTEIN 8.1 G/DL (6.4-8.2); eCRCL 122 ML/MIN; eGFR > 90 ML/MIN
[2025-05-06 07:25] VITALS: RESP 16; O2SAT 96
[2025-05-06 08:54] LABS: PLATELET ESTIMATE NORMAL; TOTAL CELLS COUNTED 100
[2025-05-06] MEDS: thiamine 100mg tablet NG SCH (09:36)
[2025-05-06 10:00] VITALS: BP 139/90; PULSE 83; RESP 18; TEMP 98.4; O2SAT 97
[2025-05-06] MEDS ORDERED: propranolol 40mg tablet PO PRN (11:20)
[2025-05-06] MEDS ORDERED: LORazepam 1 MG tablet PO PRN (11:20)
[2025-05-06] MEDS: buprenorphine/naloxone 8MG-2MG SUBlingual film SL SCH (13:37)
[2025-05-06] MEDS: OLANZapine 2.5MG tablet PO ONE (13:38)
[2025-05-06] MEDS: olanzapine 10mg tablet PO ONE (13:38)
[2025-05-06] MEDS: chlordiazePOXIDE 25mg capsule NG SCH (13:38)
--- NOTE | 2025-05-06 14:45 | PROGRESS NOTE- Residence ---
Progress Note - Resident Providers to CC Resident Creating Document: SHERWIN ALEGRIA, RES ~ Antibiotic Timeout Antibiotic Ordered?: No Subjective The patient has been evaluated at bedside. The patient currently less anxious. Mild shaking with voluntary movement in the upper extremities. Objective Vital Signs Date Time Temp Pulse Resp B/P (MAP) Pulse Ox O2 Delivery O2 Flow Rate FiO2 05/06/25 10:00 98.4 83 18 139/90 (106) 97 Room Air 05/04/25 14:21 2.0 Physical exam: General: Well alert, well oriented, agitated, mild agitation on physical examination. HEENT: Conjunctive are pink, sclerae clear, no icterus, pupil is equal in both sides, reactive to light, no ear discharge, no pharyngeal erythema or an edema. Neck: Supple, no JVD, no lymphadenopathy and thyromegaly. Chest: Equal air entry on both lungs, no additional sounds no rhonchi no wheezing at the moment. Cardiovascular: Tachycardia, S1-S2 regular sinus rhythm and, regular rate, no gallops, no rubs, no murmurs Abdomen: No visible peristalsis, Bowel sounds present on auscultation, soft, nontender, no guarding, no rigidity Extremities: No obvious deformities, no pitting edema bilaterally, capillary refill intact, peripheral pulsations are intact on both sides, mild shaking evidenced with movement in the upper extremities. Central Nervous System: No focal neurological deficits, no motor or sensory weakness in all 4 extremities, could move all 4 extremities, 2+ deep tendon reflexes, negative Babinski. Musculoskeletal: No joint swelling, deformities, inflammations, and no scoliosis and back tenderness Skin: Warm and dry. Result Diagram: 05/06/25 0515 05/06/25 0515 Coagulation Studies Laboratory Tests Test 05/02/25 19:48 05/06/25 05:15 D-Dimer 0.29 MG/L FEU (0-0.50) D-Dimer Comment Prothrombin Time 11.8 SECONDS (9.0-12.0) INR International Normalized Ratio 1.2 INR Coagulation Comments Assessment Assessment 45-year-old male patient came to the hospital with chief complaint of chest pain, anxiety, shakiness. Plan Plan Severe Alcohol withdrawal: CIWA score: 48 points at admission: The patient came to the hospital with chief complaint of chest pain, anxiety, shakiness. Patient states that he has been drink four shots of alcohol every night sometimes more. The patient is currently in ICU, on Precedex and dexmedetomidine. On phenobarbital PRN. Urine toxicology negative. Folic acid and thiamine IV. NS at 100 mL/hour. superintendent oil well services consulted. Substance use navigator consulted. Continue management as per environmental quality analyst. 05/06/2025: CIWA 5 currently. Continue diazepam 5 mg q.6h IV PRN for anxiety. Continue folic acid 1 mg daily IV. Continue thiamine 100 mg p.o. daily. Haloperidol q.6h PRN for psychosis. Resuming his home medication olanzapine 10 mg b.i.d. Chest pain: Pulmonary embolism-ruled out: EKG: Sinus tachycardia, no ST elevation, normal [place] and QRS interval. Troponin levels within reference range. D-dimer 0.29. Echocardiogram: Normal LV size and wall thickness. Overall systolic function is normal. LVEF is 70%. RV is normal size and function. The left atrium size is normal. Trileaflet AV appears mildly sclerotic without stenosis. No insufficiency. Mitral valve leaflets are mildly thickened with mild annular calcification. No stenosis. Trace regurgitation. The tricuspid valve is normal in structure with trace regurgitation. Normal pericardium. No effusion. 05/06/2025: The patient currently denies any chest pain. Likely associated to anxiety due to alcohol withdrawal. Transaminitis-trending down: Hepatic steatosis: Elevated liver enzymes. Continue to monitor CMP. Abdominal ultrasound: Hepatomegaly with increased hepatic echogenicity which may be from hepatic disease/hepatic steatosis. Pancreas is obscured by bowel gas. 05/06/2025: AST and ALT trending down. Continue monitoring CMP. Elevated lipase levels: Current lipase 304. The patient currently denies any abdominal pain, nausea or vomiting. Increasing IV fluids to NS at 150 mL/hour. Possible alcoholic cardiomyopathy-ruled out: Echocardiogram: Normal LV size and wall thickness. Overall systolic function is normal. LVEF is 70%. RV is normal size and function. The left atrium size is normal. Trileaflet AV appears mildly sclerotic without stenosis. No insufficiency. Mitral valve leaflets are mildly thickened with mild annular calcification. No stenosis. Trace regurgitation. The tricuspid valve is normal in structure with trace regurgitation. Normal pericardium. No effusion. Code status: Full code DVT prophylaxis: SCDs Analgesia/sedation: Chlordiazepoxide, Ativan. Line/tube: PIV. GI prophylaxis: Protonix 40 mg IV daily. Nutrition: Low-fat low-cholesterol diet. PT: Cleared to ambulate with nursing. Prognosis: Guarded Disposition: We will continue medical management. Anticipated discharge tomorrow. Sherwin Grullon Internal Medicine Resident [facility] Date of Service: May 06, 2025 Billing Provider: ROSALIE MOSELEY MD Common Visit Codes: [id number] INP/OBS CARE(HIGH) SHERWIN ALEGRIA, RES May 06, 2025 14:45 ROSALIE MOSELEY MD May 06, 2025 17:31
[2025-05-06 18:00] VITALS: BP 112/74; PULSE 79; RESP 18; TEMP 97.4; O2SAT 97
[2025-05-06] MEDS: BUPRENORP NALOX SL SCH (20:00)
[2025-05-06] MEDS ORDERED: olanzapine 10mg tablet PO SCH (20:00)
[2025-05-06] MEDS: olanzapine 10mg tablet PO SCH (20:43)
[2025-05-06 22:00] VITALS: BP 131/92; PULSE 68; RESP 19; TEMP 98.2; O2SAT 98
[2025-05-07] MEDS ORDERED: BUPR1FIL5 SL (03:12)
[2025-05-07 05:12] LABS: BASOPHILS # (AUTO) 0.1 X10'3 (0-0.2); BASOPHILS % (AUTO) 1.2 % (0-1); EOSINOPHILS # (AUTO) 0.2 X10'3 (0-0.9); EOSINOPHILS % (AUTO) 2.9 % (0-6); HEMATOCRIT 38.2 % (42.0-52.0); LYMPHOCYTES # (AUTO) 2.4 X10'3 (1.1-4.8); LYMPHOCYTES % (AUTO) 45.3 % (21-51); MEAN CORPUSCULAR HEMOGLOBIN 32.8 PG (27.0-31.0); MEAN CORPUSCULAR HGB CONC 34.2 g/dL (33.0-36.5); MEAN CORPUSCULAR VOLUME 95.8 FL (78-98); MEAN PLATELET VOLUME 8.8 FL (7.4-10.4); MONOCYTES # (AUTO) 0.8 X10'3 (0-0.9); NEUTROPHILS % (AUTO) 36.6 % (42-75); PLATELET COUNT 189 X10'3 (140-440); RED BLOOD COUNT 3.98 X10'6 (4.70-6.10); RED CELL DISTRIBUTION WIDTH 14.8 % (11.5-14.5); WHITE BLOOD COUNT 5.4 X10'3 (4.5-11.0)
[2025-05-07 05:26] LABS: INR 1.1 INR; PROTHROMBIN TIME 11.6 SECONDS (9.0-12.0)
[2025-05-07 05:40] LABS: ALANINE AMINOTRANSFERASE 123 U/L (12-78); ALBUMIN 3.5 G/DL (3.4-5.0); ALBUMIN/GLOBULIN RATIO 0.9 (1.1-1.5); ALKALINE PHOSPHATASE 95 IU/L (46-116); AMYLASE 150 U/L (25-115); ANION GAP 10 (8-16); ASPARTATE AMINO TRANSFERASE 80 U/L (10-37); BILIRUBIN,TOTAL 0.5 MG/DL (0.1-1.0); BLOOD UREA NITROGEN 8 MG/DL (7-18); BUN/CREATININE RATIO 12.1 (10.0-20.0); CALCIUM 8.8 MG/DL (8.5-10.1); CHLORIDE 107 MMOL/L (99-107); CREATININE 0.66 MG/DL (0.60-1.10); GLUCOSE 128 MG/DL (70-104); LIPASE 279 U/L (16-77); PHOSPHORUS 4.5 MG/DL (2.3-4.5); POTASSIUM 3.4 MMOL/L (3.5-5.1); SODIUM 141 MMOL/L (135-145); TOTAL CARBON DIOXIDE 24.1 MMOL/L (24-32); TOTAL PROTEIN 7.2 G/DL (6.4-8.2); eCRCL 138 ML/MIN; eGFR > 90 ML/MIN
[2025-05-07] MEDS: FLUoxetine 20mg capsule PO SCH (07:18)
[2025-05-07] MEDS: folic acid 1mg tablet NG SCH (07:18)
[2025-05-07 08:00] VITALS: RESP 16; O2SAT 96
[2025-05-07] MEDS ORDERED: OLANZapine 2.5MG tablet PO SCH (08:00)
[2025-05-07] MEDS ORDERED: PANT40TA54 PO (08:41)
[2025-05-07] MEDS ORDERED: FOLI1TAB27 NG (08:41)
[2025-05-07] MEDS ORDERED: thiamine tablet NG (08:41)
[2025-05-07] MEDS ORDERED: MULT9LIQ7 NG (08:41)
[2025-05-07] MEDS ORDERED: FOLI1TAB27 PO (10:35)
[2025-05-07] MEDS ORDERED: thiamine tablet PO (10:35)
--- NOTE | 2025-05-07 13:08 | DISCHARGE SUMMARY-Residence ---
Discharge Summary Providers to CC Resident Creating Document: JOSUÉ ALEGRIA, RES ~ Discharge Summary Admission Diagnosis: alcohol withdrawal Hospital Course DATE OF ADMISSION: 05/02/2025 DATE OF DISCHARGE: 05/07/2025 Discharge Diagnosis\\Comment: Severe Alcohol withdrawal CIWA score: 48 points at admission Pulmonary embolism-ruled out Transaminitis-trending down Hepatic steatosis: Elevated lipase levels-improved Possible alcoholic cardiomyopathy-ruled out Operations\\Procedures: None Consultants: Glove Parts Inspector, Dr. Davis Complications: None Condition on DC: Stable New Medications: Pantoprazole Sodium (Pantoprazole Sodium) 40 Mg Tablet.dr 40 MG PO BKF for 30 Days, #30 TAB.SR Folic Acid* (Folic Acid*) Y Tab 1 MG PO DAILY for 30 Days, #30 TAB Multivits W-Min/Ferrous Gluc (Centrum Multivit-Mineral Liq) 9 Mg Iron/15 Ml Liquid 15 ML NG Q24H for 30 Days, #30 ML [thiamine tablet] () 100 MG TABLET 100 MG PO DAILY for 30 Days, #30 Continued Medications: Buprenorphine HCl/Naloxone HCl (Buprenorp-Nalox 4-1 mg Sl Film) 4 Mg-1 Mg Film 1 FILM SL BID Pt stated he does not take 6 times a day "only take twice a day" Fluoxetine HCl (Fluoxetine HCl) 20 Mg Capsule 1 CAP PO DAILY Lorazepam (Ativan) 1 Mg Tablet 1 TAB PO BID PRN for for anxiety/agitation Olanzapine (Olanzapine) 20 Mg Tablet 0.5 TAB PO BID pt stated he takes "10mg twice a day" Propranolol Hcl (Propranolol Hcl) 20 Mg Tablet 1 TAB PO BID PRN for for anxiety/agitation Discontinued Medications: Buprenorphine Hcl/Naloxone Hcl (Suboxone 4 Mg-1 Mg Sl Film) 4 Mg-1 Mg Film 1 STRIP SL Q4H for 7 Days, #42 STRIP 0 Refills Discharge Summary: HPI: 45-year-old male patient with past medical history of alcohol use disorder came to the hospital with chief complaint of chest pain. The patient states that he has been experiencing chest pain for the last two weeks, currently improved, 4/5 in intensity with radiation to his neck. The patient states that he has been sweating, and also states some shortness of breath when he experienced these symptoms. The patient states that he has been drinking at least four or more shots of heavy alcohol daily. Associated to that the patient also endorses shakiness during the mornings. The patient currently denies shortness of breath, intestinal or urinary symptoms. Hospital course: 45-year-old male patient came to the hospital with chief complaint of chest pain. The patient was evidenced on severe anxiety due to alcohol withdrawal during the physical exam. The patient was started on severe alcohol withdrawal protocol. Due to severe anxiety manager licensing was consulted who kindly recommended admission to ICU for further management of alcohol withdrawal protocol. The patient was managed with Precedex and phenobarbital in intensive care unit. The patient improved significantly upon two days on ICU. The patient was moved to the floor on 05/04/2025. The patient was continued on alcohol withdrawal protocol, the patient reported significant improvement of anxiety. The patient remained hemodynamically stable. The patient will be discharged. Discharge course: The patient remained hemodynamically stable. The patient will be discharged with the following instructions: Come back to the emergency dedpartment or call 911 if severe chest pain, shortness of breath, palpitations is evidenced. Follow up with your primary care physician and your psychiatrist within 15 days. Continue your home medications. Strong recommendation to stop alcohol consumption. take folic acid 1 tablet daily. Take thiamine 1 tablet daily. Take pantoprazole 1 tablet daily. Physical exam: General: Well alert, well oriented, agitated, mild agitation on physical examination. HEENT: Conjunctive are pink, sclerae clear, no icterus, pupil is equal in both sides, reactive to light, no ear discharge, no pharyngeal erythema or an edema. Neck: Supple, no JVD, no lymphadenopathy and thyromegaly. Chest: Equal air entry on both lungs, no additional sounds no rhonchi no wheezing at the moment. Cardiovascular: Tachycardia, S1-S2 regular sinus rhythm and, regular rate, no gallops, no rubs, no murmurs Abdomen: No visible peristalsis, Bowel sounds present on auscultation, soft, nontender, no guarding, no rigidity Extremities: No obvious deformities, no pitting edema bilaterally, capillary refill intact, peripheral pulsations are intact on both sides, mild shaking erich denced with movement in the upper extremities. Central Nervous System: No focal neurological deficits, no motor or sensory weakness in all 4 extremities, could move all 4 extremities, 2+ deep tendon reflexes, negative Babinski. Musculoskeletal: No joint swelling, deformities, inflammations, and no scoliosis and back tenderness Skin: Warm and dry. Vital Signs Date Time Temp Pulse Resp B/P (MAP) Pulse Ox O2 Delivery O2 Flow Rate FiO2 05/07/25 08:00 16 96 Room Air 0.0 05/06/25 22:00 98.2 68 131/92 (105) 05/06/25 07:25 21 Laboratory Tests Test 05/06/25 05:15 05/07/25 04:44 White Blood Count 4.4 X10'3 5.4 X10'3 Red Blood Count 4.30 X10'6 3.98 X10'6 Hemoglobin 14.2 g/dl 13.0 g/dl Hematocrit 41.0 % 38.2 % Mean Corpuscular Volume 95.3 FL 95.8 FL Mean Corpuscular Hemoglobin 33.0 PG 32.8 PG Mean Corpuscular Hemoglobin Concent 34.6 g/dL 34.2 g/dL Red Cell Distribution Width 14.5 % 14.8 % Platelet Count 163 X10'3 189 X10'3 Mean Platelet Volume 9.1 FL 8.8 FL Neutrophils (%) (Auto) 44.9 % 36.6 % Lymphocytes (%) (Auto) 34.3 % 45.3 % Monocytes (%) (Auto) 17.7 % 14.0 % Eosinophils (%) (Auto) 2.2 % 2.9 % Basophils (%) (Auto) 0.9 % 1.2 % Neutrophils # (Auto) 2.0 X10'3 2.0 X10'3 Lymphocytes # (Auto) 1.5 X10'3 2.4 X10'3 Monocytes # (Auto) 0.8 X10'3 0.8 X10'3 Eosinophils # (Auto) 0.1 X10'3 0.2 X10'3 Basophils # (Auto) 0.0 X10'3 0.1 X10'3 CBC Comment Differential Total Cells Counted 100 Neutrophils % (Manual) 57.0 % Lymphocytes % (Manual) 29.0 % Monocytes % (Manual) 12.0 % Eosinophils % (Manual) 2.0 % Platelet Estimate Normal Red Blood Cell Morphology Perf Basophilic Stippling Macrocytosis 1+ Prothrombin Time 11.8 SECONDS 11.6 SECONDS INR International Normalized Ratio 1.2 INR 1.1 INR Coagulation Comments Sodium Level 141 MMOL/L 141 MMOL/L Potassium Level 3.5 MMOL/L 3.4 MMOL/L Chloride Level 105 MMOL/L 107 MMOL/L Carbon Dioxide Level 25.4 MMOL/L 24.1 MMOL/L Anion Gap 11 10 Blood Urea Nitrogen 5 MG/DL 8 MG/DL Creatinine 0.75 MG/DL 0.66 MG/DL Estimated GFR/1.73 m2 > 90 ML/MIN > 90 ML/MIN BUN/Creatinine Ratio 6.7 12.1 Glucose Level 98 MG/DL 128 MG/DL Calcium Level 8.9 MG/DL 8.8 MG/DL Phosphorus Level 3.9 MG/DL 4.5 MG/DL Magnesium Level 1.6 MG/DL Total Bilirubin 0.5 MG/DL 0.5 MG/DL Aspartate Amino Transf (AST/SGOT) 87 U/L 80 U/L Alanine Aminotransferase (ALT/SGPT) 133 U/L 123 U/L Alkaline Phosphatase 105 IU/L 95 IU/L Total Protein 8.1 G/DL 7.2 G/DL Albumin 3.9 G/DL 3.5 G/DL Globulin 4.2 G/DL 3.7 G/DL Albumin/Globulin Ratio 0.9 0.9 Prealbumin 31.3 MG/DL Amylase Level 135 U/L 150 U/L Lipase 304 U/L 279 U/L Chemistry Comments *Problems/Diagnosis: (1) Alcohol withdrawal Status: Acute (2) Hepatic steatosis Status: Chronic Total Time Spent on D/C: > 30 Minutes Date of Service: May 07, 2025 Billing Provider: ROSALIE MOSELEY MD Common Visit Codes: [id number] DISCH DAY >30min JOSUÉ ALEGRIA, RES May 07, 2025 13:08 ROSALIE MOSELEY MD May 07, 2025 16:55
== END 2025-05-07 12:44 | disposition home or self-care (01) | DRG 203 ==
LOC: ER 09:45 → ED HOLD 13:08 → CICU 2S 22:26 → ORTHO 4S 05-04 16:00
PROVIDERS: ADMIT Internal Medicine; ATTEND Internal Medicine
DX: R07.89 Other chest pain (principal); D69.6 Thrombocytopenia, unspecified; K76.0 Fatty (change of) liver, not elsewhere classified; E78.00 Pure hypercholesterolemia, unspecified; R74.01 Elevation of levels of liver transaminase levels; F31.9 Bipolar disorder, unspecified; E87.6 Hypokalemia; F10.939 Alcohol use, unspecified with withdrawal, unspecified; J45.909 Unspecified asthma, uncomplicated; F41.9 Anxiety disorder, unspecified; I10 Essential (primary) hypertension; K21.9 Gastro-esophageal reflux disease without esophagitis; Z88.1 Allergy status to other antibiotic agents; Z88.5 Allergy status to narcotic agent; Z82.49 Family history of ischemic heart disease and other diseases of the circulatory system; Z59.00 Homelessness unspecified
CPT/HCPCS: 36415; 71045; 76700; 80053; 80061; 80305; 80320; 81003; 82140; 82150; 82948; 83036; 83690; 83735; 83880; 84100; 84134; 84484; 85007; 85025; 85379; 85610; 87081; 93005; 93306; 97110; 97116; 97161; 97530; 99285; A4615; A6213; A6258; A6590; G0378; J1630; J2060; J2470; J2560; J3411; J3480; J3490; J7030; J7040